=== PATIENT | male | born 1945 | race Caucasian/White ===

== ENCOUNTER 2022-02-26 07:29 | Day surgery (SDC) | payer MEDICARE ==
[2022-02-26 08:19] VITALS: BP 150/75; TEMP 97.2; BMI 29.8
[2022-02-26 08:32] LABS: #Eosinphils 0.2 10x3/uL (0.0-0.5); #Monocytes 0.4 10x3/uL (0.0-1.1); #Neutrophils 1.9 10x3/uL (1.5-8.4); %Eosinophils 4.5 % (0.0-6.0); %Lymphocytes 34.8 % (18.0-47.0); %Monocytes 9.2 % (0.0-10.0); %Neutrophils 50.2 % (40.0-75.0); Mean Corpuscular HGB CONC 35.4 g/dL (32.0-36.0); Mean Corpuscular Hemoglobin 30.6 pg (27.0-33.0); Mean Corpuscular Volume 86.4 fl (81.2-95.1); Mean Platelet Volume 10.9 fl (7.4-10.4); Platelet Count 108 10x3/uL (150-450); RBC Distribution Width 12.5 % (11.5-14.5); Red Blood Cell (RBC) Count 4.57 10x6/uL (4.32-5.72); White Blood Cell (WBC) Count 3.8 10x3/uL (3.5-10.5)
[2022-02-26] MEDS ORDERED: FLU VACC QS2022-23(65YR UP)/PF 240 MCG/0.7 ML SYRINGE IM ONE (08:45)
[2022-02-26 09:03] LABS: INR-International Normal Ratio 1.1; Prothrombin Time 12.3 sec (9.5-12.1)
[2022-02-26] MEDS ORDERED: Sodium Bicarbonate 2.5 MEQ/5 ML VIAL ONE (09:22)
[2022-02-26] MEDS ORDERED: Fentanyl 100 MCG/2 ML VIAL ONE (10:37)
[2022-02-26] MEDS ORDERED: Lidocaine 1% PF 5 ML VIAL ONE (10:38)
[2022-02-26] MEDS ORDERED: Midazolam HCl 5 mg/5 ml Vial ONE (10:38)
== END 2022-02-26 11:55 | disposition home or self-care (01) ==
LOC: CSHULT 07:29
PROVIDERS: ATTEND Internal Medicine Gastroenterology
PROC: 0F923ZX Drainage of Left Lobe Liver, Percutaneous Approach, Diagnostic (ICD-10-PCS; principal; 2022-02-26)
DX: K76.0 Fatty (change of) liver, not elsewhere classified (principal); K74.00 Hepatic fibrosis, unspecified; R79.89 Other specified abnormal findings of blood chemistry
CPT/HCPCS: 47000; 76942; 85025; 85610; 88307; 88313; 99152; J2250; J3010